=== PATIENT | female | born 1995 | race Caucasian/White ===

== ENCOUNTER 2018-10-07 11:46 | Emergency (ER) | payer OTHER ==
[~2018-10-07] VITALS: Ht 160 cm; Wt 50.0 kg
[2018-10-07 11:50] VITALS: BP 115/62; PULSE 98; RESP 20; Ht 160 cm; Wt 50.0 kg
[2018-10-07] MEDS ORDERED: IBUPROFEN 200 MG TAB PO ONE (13:00)
[2018-10-07] MEDS ORDERED: IBUP-1542 PO (14:32)
[2018-10-07] MEDS ORDERED: D-ME473S2 PO (14:32)
--- NOTE | 2018-10-07 14:36 | ERD ---
ER Documentation Chief Complaint Chief Complaint pt is bib family with c/o fever, aches and pains, HPI 23-year-old female presents with fever and body aches for the last 3 days. She has a mild cough. She has urinary complaints, vomiting, chest pain, abdominal pain, flank pain, neck stiffness, rashes. ROS All systems reviewed and are negative except as per history of present illness. Medications Home Meds Active Scripts Dextromethorphan Hb-Promethazine Hcl* (Promethazine DM* Syrup) 473 Ml Syrup, 5 ML PO Q6 PRN for COUGH for 5 Days, ML Prov:SHAYLA CRUZ MD 10/07/18 Ibuprofen* (Motrin*) 600 Mg Tab, 600 MG PO Q6, #15 TAB Prov:SHAYLA CRUZ MD 10/07/18 Allergies Allergies: Coded Allergies: No Known Allergy (Unverified , 10/07/18) PMhx/Soc Medical and Surgical Hx: pt denies Medical Hx, pt denies Surgical Hx Hx Alcohol Use: No Hx Substance Use: No Hx Tobacco Use: No Smoking Status: Never smoker FmHx Family History: No diabetes, No coronary disease, No other Physical Exam Vitals Vital Signs Date Temp Pulse Resp B/P (MAP) Pulse Ox O2 O2 Flow FiO2 Time Delivery Rate 10/07/18 100.1 13:15 10/07/18 100.6 98 20 115/62 100 11:50 (79) Physical Exam Const: No acute distress Head: Atraumatic Eyes: Normal Conjunctiva ENT: Normal External Ears, Nose and Mouth. TMs and oropharynx normal. Neck: Full range of motion. No meningismus. Resp: Clear to auscultation bilaterally .dry cough. Cardio: Regular rate and rhythm, no murmurs Abd: Soft, non tender, non distended. Normal bowel sounds Skin: No petechiae or rashes Back: No midline or flank tenderness Ext: No cyanosis, or edema Neur: Awake and alert Psych: Normal Mood and Affect Results 24 hrs Laboratory Tests Test 10/07/18 13:18 Urine Color YELLOW Urine Clarity CLEAR Urine pH 7.0 Urine Specific [place] 1.015 Urine Ketones NEGATIVE mg/dL Urine Nitrite NEGATIVE mg/dL Urine Bilirubin NEGATIVE mg/dL Urine Urobilinogen NEGATIVE mg/dL Urine Leukocyte Esterase NEGATIVE Andrea/ul Urine Microscopic RBC 1 /HPF Urine Microscopic WBC 4 /HPF Urine Squamous Epithelial Cells FEW /HPF Urine Bacteria FEW /HPF Urine Mucus FEW /HPF Urine Hemoglobin 2+ mg/dL Urine Glucose NEGATIVE mg/dL Urine Total Protein NEGATIVE mg/dl Current Medications Medications Dose Sig/Blanche Start Time Status Last (Trade) Ordered Route PRN Stop Time Admin Dose Reason Admin Ibuprofen 400 mg ONCE ONCE 10/07/18 DC 10/07/18 (Motrin) PO 13:00 13:15 10/07/18 13:02 Procedures/MDM She given ibuprofen. Urine shows no signs of infection or acute abnormalities. Influenza swab negative. Patient presents with fever and URI symptoms for last 3 days. She has no evidence of hypoxemia, rest or stress, signs of pneumonia. Will treat with ibuprofen, promethazine DM, primary care follow-up and return precautions. The patient was stable with no new complaints during the ER course. Clinically, there is no current evidence to suggest meningitis, sepsis, acute abdomen, pneumonia, stroke, acute coronary syndrome, pulmonary embolism, aortic dissection or any other emergent condition appearing to require further evaluation or hospitalization. Patient counseled regarding my diagnostic i mpression and care plan. Prior to discharge all questions answered. Pt agrees with treatment plan and understands strict return precautions. Pt is instructed to follow up with primary care provider within 24-48 hours. Precautionary instructions provided including instructions to return to the ER if not improving or for any worsening or changing symptoms or concerns. Departure Diagnosis: Primary Impression: Fever Fever type: unspecified Qualified Codes: R50.9 - Fever, unspecified Condition: Stable Patient Instructions: Fever Control (Adult), Uri, Viral, No Abx (Adult) Additional Instructions: Flu swab and urine normal. May be viral illness which should resolve in the next few days. Recheck for new or worsening symptoms with primary care doctor. SHAYLA CRUZ MD Oct 07, 2018 14:36
== END 2018-10-07 14:50 | disposition home or self-care (01) ==
LOC: FTE 11:46
DX: R50.9 Fever, unspecified (principal)
CPT/HCPCS: 81001; 84703; 87400; Z7610; 99283